=== PATIENT | female | born 1940 | race Caucasian/White ===

== ENCOUNTER 2023-03-04 10:51 | Outpatient (CLI) | payer MEDICARE | END 2023-03-04 10:52 | disposition home or self-care (01) | LOC: CSHRAD 10:51 | PROVIDERS: ATTEND Internal Medicine Rheumatology | DX: M05.89 Other rheumatoid arthritis with rheumatoid factor of multiple sites (principal); J40 Bronchitis, not specified as acute or chronic | CPT/HCPCS: 71046 ==